=== PATIENT | female | born 1985 | race Caucasian/White ===

== ENCOUNTER → 2017-10-11 14:35 | Outpatient (POV) | payer BC, SELFPAY | PROVIDERS: Visit Provider Nurse Practitioner Acute Care | DX: Z00.00 Encounter for general adult medical examination without abnormal findings (principal) ==

== ENCOUNTER → 2017-11-22 13:53 | Outpatient (POV) | payer BC, SELFPAY | PROVIDERS: Visit Provider Nurse Practitioner Acute Care | DX: Z00.00 Encounter for general adult medical examination without abnormal findings (principal) ==

== ENCOUNTER → 2018-01-31 11:30 | Outpatient (POV) | payer BC, SELFPAY | PROVIDERS: Visit Provider Nurse Practitioner Acute Care | DX: Z00.00 Encounter for general adult medical examination without abnormal findings (principal) ==

== ENCOUNTER → 2018-02-18 14:17 | Outpatient (CLI) | payer BC, SELFPAY ==
--- NOTE | 2018-02-18 14:23 | US_ITS ---
US breast LT complete INDICATION: Palpable abnormality at 2-3 o'clock of the left breast ORDERING PHYSICIAN: Lukas Bar MD PATIENT AGE: 32 years COMPARISON: None TECHNIQUE: Left breast ultrasound with axilla FINDINGS: Ultrasound performed of the left breast showing echo dense tissue. No discrete sonographic nodule evident. Breast implant was noted. Small nodes present in the axilla 2 cm. IMPRESSION: No discrete nodule apparent. Small nodes in the axilla with implant noted BI-RADS Category 2, benign. A negative ultrasound does not exclude the possibility of malignancy. If there is indeed a palpable nodule, then further workup with mammography and perhaps MRI may be in order.
== END ==
PROVIDERS: PCP Family Medicine; Visit Provider Family Medicine
DX: N63.20 Unspecified lump in the left breast, unspecified quadrant (principal)
CPT/HCPCS: 76641